=== PATIENT | female | born 1945 | race Caucasian/White ===

== ENCOUNTER 2022-01-30 16:16 | Emergency (ER) | payer OTHER, SELFPAY ==
[2022-01-30 16:25] VITALS: BP 133/92; PULSE 66; RESP 16; TEMP 36.7; O2SAT 96; BMI 24.4
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
== END 2022-01-30 18:07 | disposition home or self-care (01) ==
PROVIDERS: Emergency Provider Emergency Medicine
DX: S13.4XXA Sprain of ligaments of cervical spine, initial encounter (principal); S16.1XXA Strain of muscle, fascia and tendon at neck level, initial encounter; V43.62XA Car passenger injured in collision with other type car in traffic accident, initial encounter; Y93.9 Activity, unspecified; Y92.414 Local residential or business street as the place of occurrence of the external cause; Y99.9 Unspecified external cause status
CPT/HCPCS: 99283